=== PATIENT | male | born 1955 | race Two or more races ===

== ENCOUNTER 2020-05-07 10:02 | Emergency (ER) | payer OTHER ==
[~2020-05-07] VITALS: Ht 167.6 cm; Wt 99.8 kg
[2020-05-07] MEDS ORDERED: EPINEPHrine HCL 1 MG/10 ML SYRG IV ONE (10:03)
[2020-05-07] MEDS ORDERED: SODIUM BICARBONATE 8.4% INJ 50ML SYRINGE IV ONE (10:03)
[2020-05-07] MEDS ORDERED: LIDOCAINE HCL 100 MG/5ML (2%) SYRG INJ IV ONE (10:03)
[2020-05-07] MEDS ORDERED: CALCIUM CHLOR(10%) 100MG/ML 10ML SYRINGE IV ONE (10:03)
[2020-05-07] MEDS ORDERED: SODIUM BICARBONATE 8.4 % INJ 50ML VIAL IV ONE (10:11)
[2020-05-07] MEDS ORDERED: EPINEPHrine HCL 1 MG/10 ML SYRG ONE ×2 (10:16→10:24)
== END 2020-05-07 15:18 | disposition expired ==
LOC: ER 10:02 → EDBD 10:02 → ER 15:18
DX: I46.9 Cardiac arrest, cause unspecified (principal); I11.0 Hypertensive heart disease with heart failure; I50.9 Heart failure, unspecified; E78.5 Hyperlipidemia, unspecified
CPT/HCPCS: 92950; 99285; J0171